=== PATIENT | female | born 1945 | race Hispanic/Latino ===

== ENCOUNTER 2020-09-01 06:10 | Day surgery (SDC) | payer OTHER ==
[2020-08-31 12:09] VITALS: BP 156/71
[~2020-09-01] VITALS: Ht 168.9 cm; Wt 76.2 kg
[2020-09-01] VITALS (17 sets, daily range): BP systolic 124–172; BP diastolic 61–71
[~2020-09-01 06:10] MED LIST: ASPI-1197 PO; GABA300C PO; LISI10TA24 PO; LORA10TA7 PO; METH2.5T6 PO; OMEP-420 PO; SITA1TAB6 PO
[2020-09-01] MEDS ORDERED: SUCCINYLCHOLINE 200MG/10ML SYR ONE ×2 (07:13→07:14)
[2020-09-01] MEDS ORDERED: LIDOCAINE PF 100MG/5ML (2%) SYRINGE 5ML ONE ×2 (07:13→07:14)
[2020-09-01] MEDS ORDERED: DEXAMETHASONE SOD PHOSPHATE 10MG/ML 1ML VIAL ONE (07:13)
[2020-09-01] MEDS ORDERED: PROPOFOL 10 MG/ML 20ML VIAL IV ONE (07:14)
[2020-09-01] MEDS ORDERED: NEOSTIGMINE 5MG/5ML SYR IV ONE (07:14)
[2020-09-01] MEDS ORDERED: FENTANYL CITRATE PF 50 MCG/1 ML 2ML VIAL ONE (07:14)
[2020-09-01] MEDS ORDERED: GLYCOPYRROLATE 1 MG/5 ML SYRINGE ONE (07:14)
[2020-09-01] MEDS ORDERED: ROCURONIUM 10MG/1ML SYR 10 MG/ML ML ONE (07:14)
[2020-09-01] MEDS ORDERED: ONDANSETRON 4MG INJ ONE (07:14)
[2020-09-01] MEDS ORDERED: MIDAZOLAM HCL 1 MG/ML 2ML VIAL ONE (07:16)
[2020-09-01] MEDS ORDERED: BUPIVACAINE/PF 0.5% 30ML VIAL ONE (07:19)
[2020-09-01] MEDS ORDERED: NACL 0.9% 1000ML 1,000 ML IV ONE (07:29)
[2020-09-01] MEDS ORDERED: ENBREL SQ (07:41)
[2020-09-01] MEDS ORDERED: DULO30CA52 PO (07:41)
[2020-09-01] MEDS ORDERED: DORZ10DR19 OP (07:41)
[2020-09-01] MEDS ORDERED: MELO-106 PO (07:41)
[2020-09-01] MEDS ORDERED: FOLIC ACID PO (07:41)
[2020-09-01] MEDS ORDERED: VITAMIN D2 PO (07:41)
[2020-09-01] MEDS ORDERED: CEFAZOLIN SODIUM 1 GM VIAL IVP ONE (08:00)
[2020-09-01] MEDS ORDERED: MEPERIDINE-PF 25 MG/ML SYG ONE (08:31)
== END 2020-09-01 10:25 | disposition home or self-care (01) ==
LOC: DAH 06:10
PROVIDERS: ATTEND Orthopaedic Surgery
DX: S82.135A Nondisplaced fracture of medial condyle of left tibia, initial encounter for closed fracture (principal); S83.242A Other tear of medial meniscus, current injury, left knee, initial encounter; Z20.822 Contact with and (suspected) exposure to COVID-19; M17.12 Unilateral primary osteoarthritis, left knee; M65.862 Other synovitis and tenosynovitis, left lower leg; I10 Essential (primary) hypertension; K21.9 Gastro-esophageal reflux disease without esophagitis; M06.9 Rheumatoid arthritis, unspecified; E11.39 Type 2 diabetes mellitus with other diabetic ophthalmic complication; H42 Glaucoma in diseases classified elsewhere; E66.3 Overweight; Z98.51 Tubal ligation status; Z90.710 Acquired absence of both cervix and uterus; Z98.890 Other specified postprocedural states; Z90.89 Acquired absence of other organs; Z79.899 Other long term (current) drug therapy; X58.XXXA Exposure to other specified factors, initial encounter; Y93.89 Activity, other specified; Y92.89 Other specified places as the place of occurrence of the external cause; Z79.82 Long term (current) use of aspirin; Z82.49 Family history of ischemic heart disease and other diseases of the circulatory system; Z68.27 Body mass index [BMI] 27.0-27.9, adult; Z79.84 Long term (current) use of oral hypoglycemic drugs
CPT/HCPCS: 29881; 29999; 73564; 82948 ×2; 87635; A4215; A4221; A4222; A4223; A4606; A4649 ×4; A4663; A4930; A6223; A6260; C1713; C9803; J0330 ×2; J0690; J1100; J2001 ×2; J2175; J2250; J2405; J2704; J2710; J3010; J3490; J7030 ×2

== ENCOUNTER → 2023-04-25 | Outpatient (CLI) | payer OTHER ==
[~2023-04-25] MED LIST changes: +DORZ10DR19 OP; +DULO30CA52 PO; +ENBREL SQ; +FOLIC ACID PO; +MELO-106 PO; +VITAMIN D2 PO
== END | disposition home or self-care (01) ==
LOC: RAH 09:38
PROVIDERS: ATTEND Internal Medicine Cardiovascular Disease
DX: Z13.6 Encounter for screening for cardiovascular disorders (principal)
CPT/HCPCS: 75571

== ENCOUNTER → 2023-06-09 | Outpatient (CLI) | payer OTHER | LOC: RAH 12:28 | PROVIDERS: ATTEND Family Medicine | DX: K80.20 Calculus of gallbladder without cholecystitis without obstruction (principal); I70.0 Atherosclerosis of aorta | CPT/HCPCS: 71250 ==

== ENCOUNTER → 2025-01-02 | Outpatient (CLI) | payer OTHER ==
--- NOTE | 2025-01-02 14:48 | HMCIMG ---
Exam: NONCONTRAST CT BRAIN REASON: Dysarthria and anarthria. COMPARISON: None. TECHNIQUE: Images are obtained from vertex to the skull base. The exam was performed without IV contrast. FINDINGS: There is normal appearing brain parenchyma. There are no focal mass lesions. There is is no evidence of intracranial hemorrhage or acute stroke. Ventricles and sulci appear normal. Posterior fossa and brainstem structures are unremarkable. Paranasal sinuses and remaining extracranial soft tissues appear normal as well.There is atrophy with prominence of the ventricle. IMPRESSION: 1. No acute intracranial process 2. Atrophy prominence of the lateral ventricles. CT was performed with one or more following dose reduction techniques: automated exposure control, adjustment of the mA and kv according to patient's size, or use of a iterative reconstruction technique.
== END | disposition home or self-care (01) ==
LOC: RAH 12:17
PROVIDERS: ATTEND Internal Medicine Cardiovascular Disease
DX: G31.9 Degenerative disease of nervous system, unspecified (principal); R47.1 Dysarthria and anarthria
CPT/HCPCS: 70450